=== PATIENT | female | born 1940 | race Caucasian/White ===

== ENCOUNTER → 2017-02-08 | Outpatient (CLI) | payer MEDICARE, BC, OTHER ==
[2017-02-08 08:44] LABS: ANION GAP 13 (5-19); BLOOD UREA NITROGEN 12 mg/dL (7-20); CALCIUM 9.7 mg/dL (8.4-10.2); CARBON DIOXIDE 24 mmol/L (22-30); CHLORIDE 105 mmol/L (98-107); CHOLESTEROL 230.34 mg/dL (0-200); CREATININE RESULT 0.76 mg/dL (0.52-1.25); Direct HDL 51 mg/dL (>40); GLUCOSE 84 mg/dL (75-110); POTASSIUM 4.9 mmol/L (3.6-5.0); SODIUM 141.7 mmol/L (137-145); TRIGLYCERIDES 108 mg/dL (<150)
[2017-02-08 08:55] LABS: DIRECT LDL 121 mg/dL (<100)
== END ==
LOC: OD 07:04
PROVIDERS: ATTEND Internal Medicine Cardiovascular Disease
DX: I48.91 Unspecified atrial fibrillation (principal); I10 Essential (primary) hypertension; E78.5 Hyperlipidemia, unspecified
CPT/HCPCS: 36415; 80048; 80061

== ENCOUNTER 2018-06-14 13:36 | Emergency (ER) | payer MEDICARE, BC, OTHER ==
--- NOTE | 2018-06-14 15:12 | RADIOLOGY REPORT (SQ) ---
EXAM DESCRIPTION: FOOT RIGHT COMPLETE COMPLETED DATE/TIME: 06/14/2018 3:02 pm REASON FOR STUDY: Right foot pain COMPARISON: None. NUMBER OF VIEWS: Three views. TECHNIQUE: AP, lateral and oblique radiographic images acquired of the right foot. LIMITATIONS: None. FINDINGS: MINERALIZATION: Normal. BONES: No acute fracture or dislocation. Nondisplaced transverse fracture at the base of the 5th met atarsal. Heel spur. No worrisome bone lesions. JOINTS: No effusions. SOFT TISSUES: No soft tissue swelling. No foreign body. OTHER: No other significant finding. IMPRESSION: NONDISPLACED TRANSVERSE FRACTURE AT THE BASE OF THE 5TH METATARSAL. TECHNICAL DOCUMENTATION: JOB ID: [id number] [employer]- All Rights Reserved Reading location - IP/workstation name: [email or web address]
--- NOTE | 2018-06-14 15:25 | ER Document Report ---
ED Extremity Problem, Lower - General Chief Complaint: Foot Pain Stated Complaint: FOOT PAIN Time Seen by Provider: 06/14/18 15:20 Information source: Patient Notes: Patient states she stepped up out of bed and felt a "crack" with pain to her right lateral foot. She denies falling or trauma to any other location including the ankle or tibia/fibula. TRAVEL OUTSIDE OF THE [place] IN LAST 30 DAYS: No - HPI Patient complains to provider of: Pain Location: Foot Occurred: This morning Where: Home Onset/Duration: Sudden Quality of pain: Achy Severity: Mild Pain Level: 1 Context: Barefoot Recent injury: Possibly Exacerbated by: Movement Relieved by: Nothing - Related Data Allergies/Adverse Reactions: levofloxacin [Levofloxacin] Allergy (Severe, Verified 06/14/18 13:41) diclofenac sodium [From Voltaren] Allergy (Intermediate, Verified 06/14/18 13:41 ) Pruritis ranitidine HCl [From Zantac] Allergy (Mild, Verified 06/14/18 13:41) rash ampicillin [Ampicillin] Allergy (Unknown, Verified 06/14/18 13:41) unsure nitrofurantoin macrocrystalline [From Macrodantin] Allergy (Unknown, Verified 13:41) unsure Sulfa (Sulfonamide Antibiotics) Allergy (Unknown, Verified 06/14/18 13:41) unsure Past Medical History - General Information source: Patient - Social History Smoking Status: Unknown if Ever Smoked Family History: Reviewed & Not Pertinent - Past Medical History Cardiac Medical History: Reports: Hx Hypercholesterolemia Denies: Hx Coronary Artery Disease, Hx Heart Attack, Hx Hypertension Pulmonary Medical History: Denies: Hx Asthma, Hx Bronchitis, Hx COPD, Hx Pneumonia Neurological Medical History: Denies: Hx Cerebrovascular Accident, Hx Seizures Musculoskeletal Medical History: Reports Hx Arthritis Past Surgical History: Denies: Hx Hysterectomy - Immunizations Hx Diphtheria, Pertussis, Tetanus Vaccination: Yes Hx Pneumococcal Vaccination: 08/01/08 Physical Exam - Vital signs Vitals: Temp Pulse Resp BP Pulse Ox 97.9 F 70 16 140/52 H 100 06/14/18 14:10 06/14/18 14:10 06/14/18 14:10 06/14/18 14:10 06/14/18 14:10 Notes: Reviewed vital signs and nursing note as charted by RN. CONSTITUTIONAL: Alert and oriented and responds appropriately to questions. Well -appearing; well-nourished EXT: Normal ROM in all joints; mild tenderness to palpation of the right lateral foot at the base of the fifth metatarsal. No obvious swelling or plantar ecchymosis. Neurovascularly intact to the toes Course - Re-evaluation Re-evalutation: 06/14/18 15:21 Given the above history and physical examination, and x-ray of the foot was ordered. This shows a nondisplaced proximal fifth metatarsal fracture of the right foot. Patient refuses pain medications at this time. She believes she can handle crutches. I will place the patient in a posterior mold with crutches and strict return precautions and follow-up with orthopedics. - Vital Signs Vital signs: Temp Pulse Resp BP Pulse Ox 97.9 F 70 16 140/52 H 100 06/14/18 14:10 06/14/18 14:10 06/14/18 14:10 06/14/18 14:10 06/14/18 14:10 Discharge - Discharge Clinical Impression: Fracture of 5th metatarsal Qualifiers: Encounter type: initial encounter Fracture type: closed Fracture alignment: nondisplaced Laterality: right Qualified Code(s): S92.354A - Nondisplaced fracture of fifth metatarsal bone, right foot, initial encounter for closed fracture Condition: Good Disposition: HOME, SELF-CARE Additional Instructions: Come back immediately with any increased pain, swelling, discoloration, or any other acute problems. Please make sure that you follow-up with orthopedics as we have discussed. Referrals: RICHI CHE MD [Primary Care Provider] - Follow up as needed MAIRA JENSEN DO [ACTIVE STAFF] - Follow up as needed
[2018-06-14 16:25] VITALS: BP 143/70
== END 2018-06-14 16:20 | disposition home or self-care (01) ==
LOC: ER 13:36
DX: S92.354A Nondisplaced fracture of fifth metatarsal bone, right foot, initial encounter for closed fracture (principal); X50.9XXA Other and unspecified overexertion or strenuous movements or postures, initial encounter
CPT/HCPCS: 99283

== ENCOUNTER → 2020-06-07 | Outpatient (CLI) | payer MEDICARE, BC, OTHER ==
--- NOTE | 2020-06-07 18:35 | RADIOLOGY REPORT (SQ) ---
EXAM DESCRIPTION: VENOUS UNILATERAL LOWER IMAGES COMPLETED DATE/TIME: 06/07/2020 3:40 pm REASON FOR STUDY: RLE PAIN M79.661 PAIN IN RIGHT LOWER LEG COMPARISON: None. TECHNIQUE: Dynamic and static batista scale and color images acquired of the right leg venous system. S elected spectral images acquired with additional compression and augmentation maneuvers. The contrala teral common femoral vein and saphenofemoral junction were also imaged. Images stored on PACS. LIMITATIONS: None. FINDINGS: COMMON FEMORAL: Normal phasicity, compression and augmentation. No visualized echogenic ma terial on batista scale. No defects on color images. FEMORAL: Normal compression and augmentation. No visualized echogenic material on batista scale. No defe cts on color images. POPLITEAL: Normal compression, augmentation. No visualized echogenic material on batista scale. No defec ts on color images. CALF VESSELS: Normal compression, augmentation. No visualized echogenic material on batista scale. No de fects on color images. GSV and SSV: Normal compression, augmentation. No visualized echogenic material on batista scale. No def ects on color images. ANY DEEP VENOUS INSUFFICIENCY: Not evaluated. ANY EVIDENCE OF POPLITEAL CYST: Complex cystic structure in the medial right soft tissues thought to represent a complex popliteal cyst. This may represent a ruptured popliteal cyst. OTHER: Pulsatile waveforms are noted. CONTRALATERAL COMMON FEMORAL VEIN AND SAPHENOFEMORAL JUNCTION: Normal phasicity, compression and augmentation. No visualized echogenic material on batista scale. No de fects on color images. IMPRESSION: 1. No DVT or SVT in the right lower extremity. 2. Pulsatile waveforms which can be seen with elevated right heart pressure. 3. Probable ruptured popliteal cyst. TECHNICAL DOCUMENTATION: JOB ID: [id number] 2010 [employer]- All Rights Reserved Reading location - IP/workstation name: [email or web address]
== END ==
LOC: SP 15:26
PROVIDERS: ATTEND Physician Assistant
DX: M79.661 Pain in right lower leg (principal)
CPT/HCPCS: 93971